=== PATIENT | female | born 1995 | race Caucasian/White ===

== ENCOUNTER 2020-06-13 17:05 | Emergency (ER) | payer SELFPAY ==
[2020-06-13 17:25] VITALS: BP 116/65
--- NOTE | 2020-06-13 18:19 | ER Document Report ---
HPI - HPI Patient complains to provider of: Toothache Time Seen by Provider: 06/13/20 18:08 Pain Level: 3 Notes: 25-year-old female to the emergency department with complaints of upper right tooth ache that is been going on for over 1 month but has gotten worse the past several days. She states she has been using Orajel and [id number] Motrin with not a lot of relief. States it does radiate to her right ear and right mormonism. She states that she has an appoint with a dentist Gracy. She is here for work and just has been really uncomfortable. Denies any fevers or chills, drooling, voice change, inability to open mouth, shortness of breath or any other complaints. - ROS Systems Reviewed and Negative: Yes All other systems reviewed and negative - CONSTITUTIONAL Constitutional: DENIES: Fever, Chills - EENT EENT: REPORTS: Congestion. DENIES: Sore Throat, Ear Pain Notes: Dental pain and tooth ache to the right upper tooth - NEURO Neurology: REPORTS: Headache Notes: Radiating from tooth pain - CARDIOVASCULAR Cardiovascular: DENIES: Chest pain - RESPIRATORY Respiratory: DENIES: Trouble Breathing, Coughing - GASTROINTESTINAL Gastrointestinal: DENIES: Abdominal Pain, Nausea, Patient vomiting, Diarrhea - DERM Skin Color: Normal Skin Problems: None Past Medical History - General Information source: Patient - Social History Smoking Status: Current Every Day Smoker Frequency of alcohol use: None Drug Abuse: None Family History: Reviewed & Not Pertinent Past Surgical History: Reports: Hx Appendectomy, Hx Cholecystectomy Vertical Provider Document - CONSTITUTIONAL Exam Limitations: No Limitations General Appearance: WD/WN - HEENT HEENT: Atraumatic, Normocephalic, PERRLA Notes: Tooth #1 is broken and eroded into the pulp and into the gumline. Is tender to palpation. No facial swelling. There is no melinda dental abscess. There is no Sukhwinder's angina. Airway is grossly patent. No drooling or voice change. - NECK Neck: Normal Inspection, Supple - RESPIRATORY Respiratory: Breath Sounds Normal, No Respiratory Distress. negative: Rales, Rhonchi, Wheezing - CARDIOVASCULAR Cardiovascular: Regular Rate, Regular Rhythm, No Murmur - GI/ABDOMEN Gastrointestinal: Abdomen Soft, Abdomen Non-Tender, No Organomegaly - BACK Back: Normal Inspection. negative: CVA Tenderness-Right, CVA Tenderness-Left - MUSCULOSKELETAL/EXTREMETIES Musculoskeletal/Extremeties: REBECCA SEGOVIA - NEURO Level of Consciousness: Awake, Alert, Appropriate - DERM Integumentary: Warm, Dry, No Rash Course - Re-evaluation Re-evalutation: 06/13/20 Impression: Toothache, dental caries. Will start patient on antibiotics, sent home with mouthwash and pain medicine. Encouraged to follow-up with dentist without fail. She is to return if any worsening symptoms. Patient agrees with the plan. - Vital Signs Vital signs: Temp Pulse Resp BP Pulse Ox 99.3 F 80 18 116/65 98 06/13/20 17:24 06/13/20 17:24 06/13/20 17:24 06/13/20 17:24 06/13/20 17:24 Discharge - Discharge Clinical Impression: Dental caries, Pain, dental Condition: Stable Disposition: HOME, SELF-CARE Instructions: [facility], Dentist, Penicillin V K ([facility]), Toothache ([facility]) Additional Instructions: FOLLOW UP WITH DENTIST IN [place]. IF YOU ARE NOT ABLE TO SEE YOUR DENTIST IN [place], YOU MAY GO TO ONE OF THE DENTISTS PROVIDED. COMPLETE ANTIBIOTICS. RETURN IF WORSE. Prescriptions: Ibuprofen [Motrin 800 mg Tablet] 800 mg PO Q8H PRN #30 tab PRN Reason: Penicillin V Potassium [Penicillin Vk 500 mg Tablet] 500 mg PO QID #40 tablet Chlorhexidine Gluconate [Peridex] 15 ml MM TID #420 ml Acetaminophen with Codeine [Tylenol #3 Tablet] 1 each PO BID #6 tablet Referrals: [facility] [Provider Group] - Follow up in 1 week
== END 2020-06-13 19:20 | disposition home or self-care (01) ==
LOC: ER 17:05
DX: K08.9 Disorder of teeth and supporting structures, unspecified (principal); K02.9 Dental caries, unspecified; R51.9 Headache, unspecified; F17.200 Nicotine dependence, unspecified, uncomplicated; Z90.49 Acquired absence of other specified parts of digestive tract
CPT/HCPCS: 99283